=== PATIENT | female | born 1935 ===

== ENCOUNTER 2018-01-02 13:13 | Outpatient (CLI) | payer OTHER ==
[~2018-01-02] VITALS: Ht 162.6 cm; Wt 49.0 kg
== END 2018-01-02 13:30 | disposition home or self-care (01) ==
LOC: OFIC 805 13:13
DX: H61.23 Impacted cerumen, bilateral (principal); H90.3 Sensorineural hearing loss, bilateral

== ENCOUNTER 2018-02-01 10:33 | Outpatient (CLI) | payer OTHER | END 2018-02-01 10:37 | disposition home or self-care (01) | LOC: LAB 10:33 | DX: N39.0 Urinary tract infection, site not specified (principal); R82.79 Other abnormal findings on microbiological examination of urine; D50.8 Other iron deficiency anemias; E03.8 Other specified hypothyroidism; E78.2 Mixed hyperlipidemia; I11.9 Hypertensive heart disease without heart failure; E56.8 Deficiency of other vitamins; Z12.11 Encounter for screening for malignant neoplasm of colon; R19.5 Other fecal abnormalities; E55.9 Vitamin D deficiency, unspecified; N19 Unspecified kidney failure; K92.1 Melena; R06.02 Shortness of breath; R80.8 Other proteinuria; C18.9 Malignant neoplasm of colon, unspecified ==

== ENCOUNTER 2018-02-04 08:44 | Outpatient (CLI) | payer OTHER | END 2018-02-04 08:53 | disposition home or self-care (01) | LOC: LAB 08:44 | DX: D50.8 Other iron deficiency anemias (principal); E03.8 Other specified hypothyroidism; E78.2 Mixed hyperlipidemia; I11.9 Hypertensive heart disease without heart failure; E56.8 Deficiency of other vitamins; N39.0 Urinary tract infection, site not specified; Z12.11 Encounter for screening for malignant neoplasm of colon; R19.5 Other fecal abnormalities; E55.9 Vitamin D deficiency, unspecified; N19 Unspecified kidney failure; E11.9 Type 2 diabetes mellitus without complications; K92.1 Melena; C18.9 Malignant neoplasm of colon, unspecified; R80.8 Other proteinuria ==

== ENCOUNTER → 2018-02-16 17:27 | Outpatient (CLI) | payer OTHER | END | disposition home or self-care (01) | LOC: LAB 17:27 | DX: N39.0 Urinary tract infection, site not specified (principal) ==

== ENCOUNTER → 2018-03-01 | Outpatient (CLI) | payer OTHER | END | disposition home or self-care (01) | LOC: RAD 15:27 | DX: I11.9 Hypertensive heart disease without heart failure (principal); R06.02 Shortness of breath ==

== ENCOUNTER 2018-04-07 11:46 | Outpatient (CLI) | payer OTHER | END 2018-04-07 11:47 | disposition home or self-care (01) | LOC: LAB 11:46 | DX: D50.8 Other iron deficiency anemias (principal); E03.8 Other specified hypothyroidism; E78.2 Mixed hyperlipidemia; I11.9 Hypertensive heart disease without heart failure; E56.8 Deficiency of other vitamins; N39.0 Urinary tract infection, site not specified; Z12.11 Encounter for screening for malignant neoplasm of colon; R19.5 Other fecal abnormalities; E55.9 Vitamin D deficiency, unspecified; E11.9 Type 2 diabetes mellitus without complications; R80.8 Other proteinuria; C18.8 Malignant neoplasm of overlapping sites of colon; K92.1 Melena ==

== ENCOUNTER 2018-07-05 10:43 | Outpatient (CLI) | payer OTHER | END 2018-07-05 10:56 | disposition home or self-care (01) | LOC: LAB 10:43 | DX: D50.8 Other iron deficiency anemias (principal); E03.8 Other specified hypothyroidism; E78.2 Mixed hyperlipidemia; I11.9 Hypertensive heart disease without heart failure; E56.8 Deficiency of other vitamins; N39.0 Urinary tract infection, site not specified; Z12.11 Encounter for screening for malignant neoplasm of colon; E55.9 Vitamin D deficiency, unspecified; N19 Unspecified kidney failure; E11.9 Type 2 diabetes mellitus without complications; R80.8 Other proteinuria; K92.1 Melena ==

== ENCOUNTER 2018-10-04 14:09 | Emergency (ER) | payer OTHER ==
[~2018-10-04] VITALS: Ht 165.1 cm; Wt 49.0 kg
== END 2018-10-04 16:07 | disposition home or self-care (01) ==
LOC: ER 14:09
DX: N39.0 Urinary tract infection, site not specified (principal); B96.29 Other Escherichia coli [E. coli] as the cause of diseases classified elsewhere; B96.1 Klebsiella pneumoniae [K. pneumoniae] as the cause of diseases classified elsewhere

== ENCOUNTER 2018-11-03 12:23 | Outpatient (CLI) | payer OTHER | END 2018-11-03 14:54 | disposition home or self-care (01) | LOC: LAB 12:23 | DX: E03.8 Other specified hypothyroidism (principal) ==

== ENCOUNTER 2019-05-29 15:19 | Emergency (ER) | payer OTHER ==
[~2019-05-29] VITALS: Ht 162.6 cm; Wt 46.7 kg
[2019-05-29] MEDS ORDERED: [UNRECOGNIZED DRUG - REMARK] (15:38)
== END 2019-05-29 18:23 | disposition home or self-care (01) ==
LOC: ER 15:19
DX: N39.0 Urinary tract infection, site not specified (principal); B96.29 Other Escherichia coli [E. coli] as the cause of diseases classified elsewhere

== ENCOUNTER 2019-09-08 13:19 | Emergency (ER) | payer OTHER ==
[~2019-09-08] VITALS: Ht 162.6 cm; Wt 45.4 kg
[~2019-09-08 13:19] MED LIST: [UNRECOGNIZED DRUG - REMARK]
== END 2019-09-08 18:08 | disposition home or self-care (01) ==
LOC: ER 13:19
DX: L03.312 Cellulitis of back [any part except buttock and flank] (principal)

== ENCOUNTER 2019-09-10 14:23 | Emergency (ER) | payer OTHER ==
[~2019-09-10] VITALS: Ht 160 cm; Wt 52.2 kg
== END 2019-09-10 22:21 | disposition home or self-care (01) ==
LOC: ER 14:23
DX: L03.317 Cellulitis of buttock (principal); S00.03XA Contusion of scalp, initial encounter; W18.39XA Other fall on same level, initial encounter; Y93.89 Activity, other specified; Y92.481 Parking lot as the place of occurrence of the external cause; Y99.8 Other external cause status

== ENCOUNTER 2019-09-10 18:19 | Emergency (ER) | payer OTHER ==
[~2019-09-10] VITALS: Ht 162.6 cm; Wt 45.4 kg
== END 2019-09-10 23:03 | disposition home or self-care (01) ==
LOC: ER 18:19
DX: S00.03XA Contusion of scalp, initial encounter (principal); W18.39XA Other fall on same level, initial encounter; Y93.89 Activity, other specified; Y92.481 Parking lot as the place of occurrence of the external cause; Y99.8 Other external cause status

== ENCOUNTER 2019-09-11 14:39 | Emergency (ER) | payer OTHER ==
[~2019-09-11] VITALS: Ht 152.4 cm; Wt 44.9 kg
== END 2019-09-11 21:17 | disposition home or self-care (01) ==
LOC: ER 14:39
DX: G30.8 Other Alzheimer's disease (principal); F02.80 Dementia in other diseases classified elsewhere, unspecified severity, without behavioral disturbance, psychotic disturbance, mood disturbance, and anxiety